=== PATIENT | female | born 1965 | race Caucasian/White ===

== ENCOUNTER → 2016-03-17 | Outpatient (CLI) | payer OTHER ==
[~2016-03-17] VITALS: Ht 160 cm; Wt 139.8 kg
[~2016-03-17] MED LIST: CYAN1TAB24 PO; CYCL7.5T33 PO; DO NOT ADM ANY ANTICOAGULANT DRUGS XX PRN; ERGO1CAP10 PO; FAMO1TAB37 PO; FLUT1INH INH; HYDR25TA5 PO; INSULIN HUMAN REGULAR 1,000 UNITS/10 ML VIAL SQ PRN; LACTATED RINGER'S 1000 ML IV SCH; LISI-515 PO; METOPROLOL TARTRATE 25 MG TAB PO PRN; PROPOFOL 200 MG/20 ML AMP IV ONE; SODIUM CHLORID 0.9% 500 ML IV SCH; TYLE650T9 PO; VENTAER INH
[2016-03-17 09:03] VITALS: BP 147/87; PULSE 79; RESP 18; TEMP 97.3; O2SAT 95
[2016-03-17 12:30] VITALS: BP 142/84; PULSE 75; RESP 17; TEMP 98; O2SAT 95
--- NOTE | 2016-03-17 16:12 | EKG ---
Date Performed: 03/17/2016 Time Performed: 09:27:30 PTAGE: 50 years EKG: Sinus rhythm NORMAL ECG PREVIOUS TRACING : 09/16/2012 09.18 Compared to prior tracing no significant change DOCTOR: Cornelio Cochran Interpretating Date/Time 03/17/2016 16:11:10
== END ==
LOC: HEND 08:24
PROVIDERS: ATTEND Internal Medicine Gastroenterology
DX: Z01.818 Encounter for other preprocedural examination (principal); E66.01 Morbid (severe) obesity due to excess calories; Z68.43 Body mass index [BMI] 50.0-59.9, adult; Z83.71 Family history of colonic polyps; K63.5 Polyp of colon; K64.4 Residual hemorrhoidal skin tags; K57.30 Diverticulosis of large intestine without perforation or abscess without bleeding; K29.50 Unspecified chronic gastritis without bleeding; K20.9 Esophagitis, unspecified; K44.9 Diaphragmatic hernia without obstruction or gangrene; I10 Essential (primary) hypertension
CPT/HCPCS: 43239; 45380; 88305; 88312; 93005; 99156; 99157; J7120

== ENCOUNTER 2016-04-20 09:06 | Inpatient (IN) | payer OTHER ==
[~2016-04-20] VITALS: Ht 160 cm; Wt 134.0 kg
[~2016-04-20 09:06] MED LIST changes: -CYCL7.5T33 PO; -DO NOT ADM ANY ANTICOAGULANT DRUGS XX PRN; -INSULIN HUMAN REGULAR 1,000 UNITS/10 ML VIAL SQ PRN; -LACTATED RINGER'S 1000 ML IV SCH; -METOPROLOL TARTRATE 25 MG TAB PO PRN; -PROPOFOL 200 MG/20 ML AMP IV ONE; -SODIUM CHLORID 0.9% 500 ML IV SCH
[2016-05-10] MEDS ORDERED: ceFAZolin 2 GM PREMIX 50 ML IV SCH (05:45)
[2016-05-10] MEDS ORDERED: INSULIN HUMAN REGULAR 1,000 UNITS/10 ML VIAL SQ PRN (05:45)
[2016-05-10] MEDS ORDERED: ACETAMINOPHEN 1000 MG/100 ML VIAL IV SCH (05:45)
[2016-05-10] MEDS ORDERED: ONDANSETRON HCL 4 MG/2 ML VIAL IV PUSH SCH (05:45)
[2016-05-10] MEDS ORDERED: METOPROLOL TARTRATE 25 MG TAB PO PRN (05:45)
[2016-05-10] MEDS ORDERED: metroNIDAZOLE 500 MG INJ 100 ML IV SCH (05:45)
[2016-05-10] MEDS ORDERED: LACTATED RINGER'S 1000 ML IV SCH (05:45)
[2016-05-10] MEDS ORDERED: SODIUM CHLORID 0.9% 500 ML IV SCH (05:45)
[2016-05-10] MEDS ORDERED: APREPITANT 40 MG CAP PO SCH (05:45)
[2016-05-10] MEDS ORDERED: SCOPOLAMINE 1.5 MG PATCH T-DERMAL SCH (05:45)
[2016-05-10] MEDS ORDERED: CYCL7.5T33 PO (06:06)
[2016-05-10 06:14] VITALS: BP 133/74; PULSE 72; RESP 20; TEMP 98; O2SAT 95
[2016-05-10] MEDS ORDERED: BUPIVACAINE/EPINEPHRINE 0.25% 50 ML VIAL ONE (07:07)
[2016-05-10] MEDS ORDERED: FAMOTIDINE 20 MG/2 ML VIAL ONE (07:15)
[2016-05-10] MEDS ORDERED: fentaNYL CITRATE 250 MCG/5 ML AMP ONE ×2 (07:15→10:21)
[2016-05-10] MEDS ORDERED: MIDAZOLAM HCL 2 MG/2 ML VIAL ONE (07:15)
[2016-05-10] MEDS ORDERED: METHYLENE BLUE 100 MG/10 ML VIAL NG ONE (08:28)
[2016-05-10] MEDS ORDERED: SUGAMMADEX SODIUM 200 MG/2 ML VIAL IV PUSH ONE ×2 (09:57)
[2016-05-10] MEDS ORDERED: Post-op Orders (for Pharmacy) MISC XX ONE (10:00)
[2016-05-10] MEDS ORDERED: NALOXONE HCL 0.4 MG/ML AMP IV PRN (10:00)
[2016-05-10] MEDS ORDERED: diphenhydrAMINE HCL ELIXIR 12.5 MG/5 ML CUP PO PRN (10:00)
[2016-05-10] MEDS ORDERED: SODIUM CHLORIDE 0.9% FLUSH 10 ML FLUSH IV FLUSH PRN (10:00)
[2016-05-10] MEDS ORDERED: ENALAPRILAT 1.25 MG/ML VIAL IV PUSH PRN (10:00)
[2016-05-10] MEDS ORDERED: diphenhydrAMINE HCL 50 MG/ML VIAL IV PRN (10:00)
[2016-05-10] MEDS ORDERED: ONDANSETRON HCL 4 MG/2 ML VIAL IV PRN ×2 (10:00)
[2016-05-10] MEDS: D5-1/2 NS + KCL 20 MEQ INJ 1,000 ML IV SCH ×3 (10:00→18:00)
[2016-05-10] MEDS ORDERED: DO NOT ADM ANY ANTICOAGULANT DRUGS XX PRN (10:15)
[2016-05-10] MEDS ORDERED: *morphine SULFATE 8 MG/ML PERIprocedure ONLY ONE (10:38)
[2016-05-10] MEDS: MORPHINE SULFATE 30 MG/30 ML PCA IV SCH (10:58)
[2016-05-10] MEDS: METOCLOPRAMIDE HCL 10 MG/2 ML VIAL IVS SCH ×3 (11:00→23:00)
[2016-05-10] MEDS ORDERED: ACETAMINOPHEN 1000 MG/100 ML VIAL IV PRN (12:00)
[2016-05-10] MEDS: RESP: ALBUTEROL 2.5 MG/3 ML NEB (SCH) INH ×2 (12:00→16:00)
[2016-05-10] MEDS ORDERED: NEOSTIGMINE 3 MG/3 ML SYR IV ONE ×2 (12:00→14:56)
[2016-05-10] MEDS: metroNIDAZOLE 500 MG INJ 100 ML IV SCH ×2 (14:00→20:40)
[2016-05-10] MEDS: PCA - TOTAL MG MORPHINE DELIVERED PER SHIFT SCH ×2 (14:00→20:40)
[2016-05-10] MEDS ORDERED: ENOXAPARIN SODIUM 40 MG/0.4 ML SYRINGE SQ SCH (14:00)
[2016-05-10] MEDS ORDERED: PROPOFOL 200 MG/20 ML AMP IV ONE (14:55)
[2016-05-10] MEDS ORDERED: LACTATED RINGER'S 1000 ML INJ 1,000 ML IV ONE (14:56)
[2016-05-10] MEDS ORDERED: ONDANSETRON HCL 4 MG/2 ML VIAL IV PUSH ONE (14:56)
[2016-05-10 16:00] VITALS: BP 106/55; PULSE 70; RESP 19; TEMP 98.6; O2SAT 95
[2016-05-10 19:55] VITALS: O2SAT 95
[2016-05-10 20:00] VITALS: BP 121/53; PULSE 63; RESP 20; TEMP 96.1; O2SAT 94
[2016-05-10] MEDS: SODIUM CHLORIDE 0.9% FLUSH 10 ML FLUSH IV FLUSH SCH (20:40)
[2016-05-11] VITALS (7 sets, daily range): BP systolic 117–126; BP diastolic 56–64; PULSE 62–69; RESP 20; TEMP 97–98.1; O2SAT 94–97
[2016-05-11] MEDS: RESP: ALBUTEROL 2.5 MG/3 ML NEB (SCH) INH ×4 (00:19→11:31)
[2016-05-11] MEDS: D5-1/2 NS + KCL 20 MEQ INJ 1,000 ML IV SCH ×3 (00:59→10:00)
[2016-05-11] MEDS: MORPHINE SULFATE 30 MG/30 ML PCA IV SCH (02:41)
[2016-05-11] MEDS: METOCLOPRAMIDE HCL 10 MG/2 ML VIAL IVS SCH (05:00)
[2016-05-11 05:36] LABS: AUTOMATED NEUTROPHIL # 12.8 TH/MM3 (1.8-7.7); BASOPHIL % 0.2 % (0.0-2.0); EOSINOPHIL % 0.1 % (0.0-4.0); HEMATOCRIT 38.6 % (35.0-46.0); HEMO FLAGS DIFF FINAL; LYMPH % 9.1 % (9.0-44.0); LYMPHOCYTE # 1.4 TH/MM3 (1.0-4.8); MEAN CELL VOLUME 95.2 FL (80.0-100.0); MEAN CORPUSCULAR HEMOGLOBIN 31.5 PG (27.0-34.0); MEAN CORPUSCULAR HGB CONC 33.1 % (32.0-36.0); MONO % 4.6 % (0.0-8.0); PLATELET COUNT 296 TH/MM3 (150-450); RED BLOOD COUNT 4.06 MIL/MM3 (4.00-5.30); RED CELL DISTRIBUTION WIDTH 13.9 % (11.6-17.2); WHITE BLOOD COUNT 14.9 TH/MM3 (4.0-11.0)
[2016-05-11 05:56] LABS: BICARBONATE 24.4 MEQ/L (21.0-32.0); MAGNESIUM 2.4 MG/DL (1.5-2.5); POTASSIUM 4.2 MEQ/L (3.5-5.1)
[2016-05-11] MEDS: PCA - TOTAL MG MORPHINE DELIVERED PER SHIFT SCH ×2 (06:00→12:34)
[2016-05-11] MEDS: metroNIDAZOLE 500 MG INJ 100 ML IV SCH (06:41)
[2016-05-11] MEDS ORDERED: PANTOPRAZOLE SODIUM 40 MG VIAL IVP SCH (09:00)
[2016-05-11] MEDS ORDERED: PANTOPRAZOLE SOD 40 MG DELAYED RELEASE TAB PO SCH (09:00)
[2016-05-11] MEDS: SODIUM CHLORIDE 0.9% FLUSH 10 ML FLUSH IV FLUSH SCH (09:00)
[2016-05-11] MEDS ORDERED: METOCLOPRAMIDE HCL 10 MG/2 ML VIAL IVS PRN (10:00)
--- NOTE | 2016-05-11 10:20 | MP ---
cc: HANY WATERS DATE OF 1965 DATE OF OPERATION 05/10/2016 PREOPERATIVE DIAGNOSES 1. Morbid obesity with a BMI of 53, complicated by essential hypertension. 2. Hiatal hernia. 3. Biliary colic. POSTOPERATIVE DIAGNOSES 1. Morbid obesity with a BMI of 53, complicated by essential hypertension. 2. Hiatal hernia. 3. Biliary colic. PROCEDURES 1. Laparoscopic Kulwant-en-Y gastric bypass, 100-cm Kulwant limb, antegastric antecolic. 2. Laparoscopic hiatal hernia repair. 3. Laparoscopic cholecystectomy. SURGEON Hany Waters MD ANESTHESIA General endotracheal anesthesia ESTIMATED BLOOD LOSS Scant. FINDINGS 1. Moderate-sized hiatal hernia. 2. Fatty liver. 3. Descending gallbladder with adhesions of omentum. SPECIMEN Gallbladder. COMPLICATIONS None. OPERATION The patient was brought to the operating room and placed on the operating table in supine position, bilateral sequential inflation device placed on lower extremities, general anesthesia instituted, antibiotics initiated. The abdomen was prepped and draped sterilely. A poin 18-cm distal to the xiphoid in the midline anesthetized with 0.25% Marcaine with epinephrine. The skin incision was made, a 5-mm OptiView port placed under direct vision and pneumoperitoneum was created. Under direct vision a 5-mm left upper quadrant, 12-mm left upper quadrant, 12-mm right upper quadrant and 5-mm right upper quadrant ports were placed. Prior to placement of all ports, the skin and peritoneum were anesthetized with 0.25% Marcaine with epinephrine. The patient's omentum was lifted into the upper abdomen. It was split down the middle to create a path for the Kulwant limb. The ligament of Treitz was identified, a point 40 cm distal identified. The small bowel was divided in this region using an Longview Flex stapler vascular load reinforced with SeamGuard. The distal segment was brought up for a distance of 100 cm, enterotomy created in this region, enterotomy in the biliopancreatic limb and a [id number]-[id number] stapled jejunojejunostomy created in the usual manner. The mesenteric defect at the jejunojejunostomy was closed with 2-0 Surgidac suture in a running manner. The patient was placed in reverse Trendelenburg position with the left side up. The Lorena-Flex retractor was placed. The left lobe of the liver was retracted. The angle of His was taken down bluntly, a point 5 cm distal to the GE junction along the lesser curve identified, the lesser sac entered using blunt dissection. The stomach was partitioned horizontally using an Longview-Flex stapler blue load, an additional firing taken directed towards the angle of His to completely divide the stomach. A gastrotomy created in the new stomach, enterotomy in the Kulwant limb and gastrojejunostomy created, stomal opening of 2 cm. An 18-Telugu OG tube was placed across the anastomosis, the defect then closed in two layers of running 2-0 Vicryl. Prior to placement of the second layer, methylene blue instilled through the OG tube. There was no evidence of extravasation. Evicel was then placed over the gastrojejunostomy, jejunojejunostomy and all staple lines. The operative field inspected and hemostasis was present. During the dissection of the stomach, the crura of the diaphragm was dissected, both left and right crura, mobilizing the GE junction into the abdominal cavity, excising the hiatal hernia sacs. The robson of the diaphragm was then approximated with 0 silk sutured in a [id number] manner. The gallbladder was then focused on. It was retracted into the upper abdomen. A 5-mm port was placed on the epigastrium. The infundibulum was retracted. Omentum adhesed to the gallbladder was taken down. Calot's triangle was opened, the hepatoduodenal ligament incised. The cystic artery was identified. It was circumferentially dissected and divided with a harmonic scalpel. The cystic duct was identified, circumferentially dissected. It was clipped with hemoclips and divided above the clips using the harmonic scalpel. The gallbladder was removed from the liver bed using the harmonic scalpel. It was retrieved from the peritoneal cavity in an Endopouch through the 15-mm port site. The operative field inspected and hemostasis assured. No evidence of bile leak. The pneumoperitoneum was released, all ports removed. All skin incisions were closed with 4-0 Monocryl. The abdominal wall was cleaned and a sterile dressing placed. The patient was awakened and taken to the recovery room. MD ULYSSES Apodaca/MICHAEL /10:09 AM /10:10 AM MTDKunal
--- NOTE | 2016-05-11 11:54 | HHI.PR ---
Subjective Subjective Notes pt comfortable no cp no sob alicia liquids Objective Vitals/I&O Vital Signs Date Time Temp Pulse Resp B/P Pulse Ox O2 Delivery O2 Flow Rate FiO2 05/11/16 08:25 97.8 69 20 120/56 95 05/11/16 07:54 Nasal Cannula 21 05/10/16 19:55 3.00 Labs Laboratory Tests Test 05/11/16 04:53 White Blood Count 14.9 Red Blood Count 4.06 Hemoglobin 12.8 Hematocrit 38.6 Mean Corpuscular Volume 95.2 Mean Corpuscular Hemoglobin 31.5 Mean Corpuscular Hemoglobin 33.1 Concent Red Cell Distribution Width 13.9 Platelet Count 296 Mean Platelet Volume 9.7 Neutrophils (%) (Auto) 86.0 Lymphocytes (%) (Auto) 9.1 Monocytes (%) (Auto) 4.6 Eosinophils (%) (Auto) 0.1 Basophils (%) (Auto) 0.2 Neutrophils # (Auto) 12.8 Lymphocytes # (Auto) 1.4 Monocytes # (Auto) 0.7 Eosinophils # (Auto) 0.0 Basophils # (Auto) 0.0 CBC Comment DIFF FINAL Differential Comment Sodium Level 136 Potassium Level 4.2 Chloride Level 102 Carbon Dioxide Level 24.4 Anion Gap 10 Blood Urea Nitrogen 9 Creatinine 0.73 Estimat Glomerular Filtration 83 Rate Random Glucose 116 Calcium Level 9.0 Magnesium Level 2.4 Abdomen: Post-op tenderness Extremities: Perfused Wound Wound : Wound Location: Abdomen Appearance: Clean & Dry A/P Assessment and Plan POD #1 S/P LRYGBP doing well d/c home today Hemal Waters MD May 11, 2016 11:54
[2016-05-11] MEDS ORDERED: HYDROmorphone HCL 2 MG TAB PO PRN (14:30)
[2016-05-11] MEDS ORDERED: LISINOPRIL 20 MG TAB PO SCH (21:00)
== END 2016-05-11 14:30 | disposition home or self-care (01) | DRG 621 ==
LOC: HSDI 05-10 05:08 → N07B 05-10 14:14
PROVIDERS: ADMIT Surgery; ATTEND Surgery
PROC: 0BQR4ZZ (ICD-10-PCS; 2016-05-10)
PROC: 0FT44ZZ Resection of Gallbladder, Percutaneous Endoscopic Approach (ICD-10-PCS; 2016-05-10)
PROC: 0D164ZA Bypass Stomach to Jejunum, Percutaneous Endoscopic Approach (ICD-10-PCS; principal; 2016-05-10 07:35)
PROC: 0BQS4ZZ (ICD-10-PCS; 2016-05-10 07:35)
DX: E66.01 Morbid (severe) obesity due to excess calories (principal); Z68.43 Body mass index [BMI] 50.0-59.9, adult; K76.0 Fatty (change of) liver, not elsewhere classified; I10 Essential (primary) hypertension; K44.9 Diaphragmatic hernia without obstruction or gangrene; K66.0 Peritoneal adhesions (postprocedural) (postinfection); K82.8 Other specified diseases of gallbladder
CPT/HCPCS: 80048; 83735; 85025; 88304; 94150; 94640; 94664; J0131; J0690; J1650; J2250; J2270; J2405; J2710; J2765; J3010; J3480; J7120; J7613; J8501